=== PATIENT | male | born 1935 | race Caucasian/White ===

== ENCOUNTER 2016-07-31 11:42 | Inpatient (IN) | payer OTHER ==
[~2016-07-31] VITALS: Ht 175.3 cm; Wt 66.2 kg
--- NOTE | ~2016-07-31 | 2DMMODE ---
[facility] [place] [address] 2 D/M-MODE ECHOCARDIOGRAM Name: STEFANIE LING Room #: 303-P [facility]#: [id number] Admission: 07/31/16 Attend Phys: Luz Mathew MD Discharge: 08/01/16 Date of : 31 Date of Service: 08/01/16 1535 Report #: [id number] THIS REPORT FOR: //name// APPROVED REPORT Study performed: 08/01/2016 11:08:29 EXAM: Comprehensive 2D, Doppler, and color-flow Echocardiogram Patient Location: Bedside Blood Pressure: 105/65 mmHg HR: 69 bpm Other Information Study Quality: Adequate Indications Altered mental status, Dementia. 2D Dimensions LVEF(%): 59.83 (>50%) IVSd: 10.46 (7-11mm) LVOT Diam: 21.84 (18-24mm) LVDd: 46.48 mm PWd: 10.15 (7-11mm) Ascending Aorta: 33.81 mm LVDs: 31.71 (25-40mm) IVC: 25.00 mm Aortic Root: 36.75 mm Raphael's LVEF: 59.83 % Aortic Valve AoV Peak Jimmy.: 1.09 m/s AO Peak Gr.: 4.71 mmHg LV Max P.00 mmHg LV Max: 0.87 m/s Mitral Valve MV PHT: 44.78 ms MV E Max Jimmy.: 0.79 m/s E/A Ratio: 1.0 MV A Jimmy.: 0.78 m/s MV Decel. Time: 154.41 ms Pulmonary Valve PV Peak Jimmy.: 0.76 m/s PV Peak Gr.: 2.30 mmHg Tricuspid Valve RAP Estimate: 10.00 mmHg [facility] [address] [place] [address] 2 D/M-MODE ECHOCARDIOGRAM Name: CASESTEFANIE Room #: 303-P [facility] IN ..#: [id number] Admission: 07/31/16 Attend Phys: Luz Mathew MD Discharge: 08/01/16 Date of : 31 Date of Service: 08/01/16 1535 Report #: [id number] Left Ventricle The left ventricle is normal size. There is normal LV segmental wall motion. There is normal left ventricular wall thickness. The left ventricular systolic function is normal. The left ventricular ejection fraction is within the normal range. LVEF is 55-60%. Right Ventricle The right ventricle is normal size. The right ventricular systolic function is normal. Atria The left atrium size is normal. The right atrium size is normal. Aortic Valve The aortic valve is sclerotic. No aortic regurgitation is present. There is no aortic valvular stenosis. Mitral Valve The mitral valve is normal in structure. There is no mitral valve regurgitation noted. Tricuspid Valve The tricuspid valve is normal in structure. There is no tricuspid valve regurgitation noted. Pulmonic Valve The pulmonary valve is normal in structure. There is no pulmonic valvular regurgitation. Great Vessels The aortic root is normal in size. IVC is normal in size and collapses >50% with inspiration. Pericardium There is no pericardial effusion. <Conclusion> The left ventricle is normal size. The left ventricular systolic function is normal. The right ventricle is normal size. The left atrium size is normal. The aortic valve is sclerotic. There is no aortic valvular stenosis. [facility] [place] [address] 2 D/M-MODE ECHOCARDIOGRAM Name: CASE,STEFANIE Torres Room #: 303-P DIS IN M.R.#: [id number] Admission: 07/31/16 Attend Phys: Luz Mathew MD Discharge: 08/01/16 Date of : 31 Date of Service: 08/01/16 1535 Report #: [id number] The mitral valve is normal in structure. There is no pericardial effusion. <ELECTRONICALLY SIGNED> By: Jimenez Foote MD 08/01/16 1535 1535 153 Jimenez Foote MD /INF
--- NOTE | ~2016-07-31 | EKG ---
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 : 1935 Requested By: Camilo Tejeda Order Number: [id number] MD: Pramod Cueto Measurements Intervals [facility] Rate: 73 P: 47 [place]: 168 QRS: -64 QRSD: 135 T: 22 QT: 423 QTc: 467 Interpretive Statements Sinus rhythm RBBB and LAFB Compared to ECG 10/17/2015 21:43:33 ST (T wave) deviation now present No significant change was found Electronically Signed On 08-01-2016 7:55:12 CDT by Pramod Cueto [email or web address] <ELECTRONICALLY SIGNED> By: Pramod Cueto MD, [facility] 08/01/16 0755 1158 1158 Pramod Cueto MD, [facility] /EPI
[2016-07-31 11:42] VITALS: BP 117/60
[~2016-07-31 11:42] MED LIST: ACTOS 30 MG TAB30 M1 PO; ACTOS 30 MG TAB30 MG PO; ALLERCLEAR10 MG PO; ASPIR 8181 MG PO; ASPIRIN EC81 M1 PO; CALCIUM 500 +1 EAC5 PO; CALCIUM 600 +1 EA11 PO; CARAFATE 1 GM TA1 G1 PO; CLARITIN10 MG PO; CO Q-10100 MG PO; COQ-10100 MG PO; FLEXERIL PO; FOLIC ACID0.4 MG PO; GLUCOPHAGE500 MG PO; GLUCOSAMINE &1 EAC1 PO; GLUCOSAMINE &1 EACH PO; GLUMETZA500 PO; HYDROCODON-ACE1 EAC8 PO; JANUMET 50-5001 EACH PO; LEVEMIR SUBQ; LEVOTHYROXIN0.125 M1 PO; LEVOTHYROXIN0.137 M1 PO; MAGNESIUM GLUC250 MG PO; MAGNESIUM250 M1; MAGNESIUM250 M1 PO; MEGARED; MEGARED PLANT-300 MG PO; METAMUCIL1 EAC1 PO; METAMUCIL283 GM; NAMENDA 10 MG T10 MG PO; NAMENDA 5 MG TAB5 M1 PO; NORCO 5-325 TA1 EACH PO; OMEGA KRILL; OMEGA-3 KRILL1 EACH PO; PANTOPRAZOLE SO20 MG PO; POTASSIUM99 M1 PO; PREDNISONE 10 M10 M1 PO; PRILOSEC 20 MG20 MG PO; PROBIOTIC1 EAC1 PO; PROBIOTIC1 EACH PO; SIMVASTATIN40 MG PO; TRADJENTA5 MG PO; TRAMADOL 50 MG50 MG PO; ULTRAM 50MG TAB50 MG PO; VITAMIN E400 UNI2 PO; VITAMIN E400 UNIT PO; VITAMINC500 PO
[2016-07-31 12:03] LABS: HEMATOCRIT 42.7 % (42.0-52.0); HEMOGLOBIN 14.4 gm/dL (14.0-18.0); MCH 33.6 pg (26.0-34.0); MCHC 33.7 g/dL (28.0-37.0); MCV 99.7 fL (80.0-100.0); PLATELET COUNT 183 thou/uL (150-400); RBC 4.28 mil/uL (4.50-6.00); RDW 13.2 % (10.5-14.5); WBC 5.8 thou/uL (4.0-11.0)
[2016-07-31 12:07] LABS: MANUAL DIFF YES
[2016-07-31 12:12] LABS: ANION GAP 7 mmol/L (7-16); BUN 18 mg/dL (7-18); CALCIUM 9.1 mg/dL (8.5-10.1); CHLORIDE 107 mmol/L (98-107); CO2 24 mmol/L (21-32); CREATININE 0.9 mg/dL (0.7-1.3); GLUCOSE 139 mg/dL (74-106); POTASSIUM 4.5 mmol/L (3.5-5.1); SODIUM 138 mmol/L (136-145)
[2016-07-31 12:20] LABS: ALBUMIN 3.3 g/dL (3.4-5.0); ALKALINE PHOSPHATASE 73 U/L (46-116); PROTIME 10.6 Seconds (9.3-11.4); SGOT 23 U/L (15-37); SGPT 19 U/L (30-65); TOTAL BILIRUBIN 0.3 mg/dL (<0.1-1.0); TOTAL PROTEIN 6.5 g/dL (6.4-8.2); TROPONIN-I < 0.04 ng/mL (<0.04-0.07)
[2016-07-31 12:29] LABS: URINE BILIRUBIN NEGATIVE (Negative); URINE BLOOD TRACE (Negative); URINE COLOR YELLOW; URINE GLUCOSE-RANDOM* NEGATIVE (Negative); URINE KETONES NEGATIVE (Negative); URINE NITRITE NEGATIVE (Negative); URINE PROTEIN (DIPSTICK) NEGATIVE (Negative); URINE UROBILINOGEN 0.2 E.U./dl (0.2-1.0)
[2016-07-31 13:04] LABS: ABSOLUTE NEUTROPHILS 2.8 thou/uL (1.4-8.2); PLATELET ESTIMATE NORMAL; TOTAL CELL COUNT 100
[2016-07-31 16:42] LABS: TSH 0.863 uIU/mL (0.358-3.740)
[2016-07-31 16:49] VITALS: BP 126/78
[2016-07-31 20:00] VITALS: BP 114/76
[2016-08-01] VITALS: BP 104/59
[2016-08-01 04:00] VITALS: BP 95/55
[2016-08-01 05:58] LABS: CHOLESTEROL 109 mg/dL (<200); HDL CHOLESTEROL 28 mg/dL (>40); LDL CHOLESTEROL 67 mg/dL (<100); TC:HDL 3.9 Ratio (Not establshd); TRIGLYCERIDE 73 mg/dL (<150); VLDL 15 mg/dL (<40)
[2016-08-01 08:42] VITALS: BP 105/65
[2016-08-01 12:30] VITALS: BP 128/61
[2016-08-01 12:48] VITALS: BP 128/61
== END 2016-08-01 13:23 | disposition home or self-care (01) | DRG 149 ==
LOC: ER 11:42 → EROBS 14:49 → 3N 14:49
PROVIDERS: Family Medicine; Nurse Practitioner; Physician Assistant
DX: R42 Dizziness and giddiness (principal); E11.9 Type 2 diabetes mellitus without complications; E03.9 Hypothyroidism, unspecified; G30.9 Alzheimer's disease, unspecified; E78.5 Hyperlipidemia, unspecified; F02.80 Dementia in other diseases classified elsewhere, unspecified severity, without behavioral disturbance, psychotic disturbance, mood disturbance, and anxiety; R41.3 Other amnesia; Z96.651 Presence of right artificial knee joint; K21.9 Gastro-esophageal reflux disease without esophagitis; Z98.42 Cataract extraction status, left eye; Z98.41 Cataract extraction status, right eye; Z88.1 Allergy status to other antibiotic agents; Z88.2 Allergy status to sulfonamides; Z88.8 Allergy status to other drugs, medicaments and biological substances; Z87.891 Personal history of nicotine dependence; Z83.3 Family history of diabetes mellitus; Z79.82 Long term (current) use of aspirin; Z79.899 Other long term (current) drug therapy; Z90.49 Acquired absence of other specified parts of digestive tract
CPT/HCPCS: 10096

== ENCOUNTER 2016-09-19 04:21 | Emergency (ER) | payer OTHER ==
[~2016-09-19] VITALS: Ht 175.3 cm; Wt 79.4 kg
--- NOTE | ~2016-09-19 | EKG ---
[place] [address] [facility] [place] [address] ELECTROCARDIOGRAM REPORT Name: CASESTEFANIE Room #: 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
[~2016-09-19 04:21] MED LIST changes: +LEVOTHYROXIN0.112 M1 PO; +NOVOLOG100 UNIT/1 SUBQ; +TRADJENTA5 MG
[2016-09-19 04:43] LABS: HEMATOCRIT 39.1 % (42.0-52.0); HEMOGLOBIN 13.2 gm/dL (14.0-18.0); MCH 33.4 pg (26.0-34.0); MCHC 33.8 g/dL (28.0-37.0); PLATELET COUNT 183 thou/uL (150-400); RBC 3.95 mil/uL (4.50-6.00)
[2016-09-19 04:48] LABS: ANION GAP 8 mmol/L (7-16); BUN 23 mg/dL (7-18); CHLORIDE 104 mmol/L (98-107); CO2 26 mmol/L (21-32); CREATININE 1.1 mg/dL (0.7-1.3); GLUCOSE 181 mg/dL (74-106); POTASSIUM 3.9 mmol/L (3.5-5.1); SODIUM 138 mmol/L (136-145)
[2016-09-19 04:53] LABS: MANUAL DIFF YES
[2016-09-19 04:55] LABS: ALBUMIN 3.4 g/dL (3.4-5.0); ALKALINE PHOSPHATASE 77 U/L (46-116); SGOT 23 U/L (15-37); SGPT 22 U/L (30-65); TOTAL BILIRUBIN 0.2 mg/dL (<0.1-1.0); TOTAL PROTEIN 6.2 g/dL (6.4-8.2); TROPONIN-I < 0.04 ng/mL (<0.04-0.07)
[2016-09-19 05:16] LABS: ABSOLUTE NEUTROPHILS 1.8 thou/uL (1.4-8.2); TOTAL CELL COUNT 100
[2016-09-19 05:27] LABS: URINE BILIRUBIN NEGATIVE (Negative); URINE BLOOD TRACE (Negative); URINE COLOR YELLOW; URINE GLUCOSE-RANDOM* NEGATIVE (Negative); URINE KETONES NEGATIVE (Negative); URINE LEUKOCYTES-REFLEX NEGATIVE (Negative); URINE PROTEIN (DIPSTICK) NEGATIVE (Negative)
[2016-09-19] MEDS ORDERED: SIMETHICON CHEW80 M1 PO (06:01)
== END 2016-09-19 06:17 | disposition home or self-care (01) ==
LOC: ER 04:21
PROVIDERS: Emergency Medicine
DX: R10.9 Unspecified abdominal pain (principal); R14.0 Abdominal distension (gaseous); K21.9 Gastro-esophageal reflux disease without esophagitis; E78.00 Pure hypercholesterolemia, unspecified; G30.9 Alzheimer's disease, unspecified; E03.9 Hypothyroidism, unspecified; F02.80 Dementia in other diseases classified elsewhere, unspecified severity, without behavioral disturbance, psychotic disturbance, mood disturbance, and anxiety; Z90.89 Acquired absence of other organs; Z90.79 Acquired absence of other genital organ(s); Z85.46 Personal history of malignant neoplasm of prostate; Z88.8 Allergy status to other drugs, medicaments and biological substances; Z88.1 Allergy status to other antibiotic agents; Z87.891 Personal history of nicotine dependence

== ENCOUNTER → 2016-09-20 | Outpatient (CLI) | payer OTHER ==
[~2016-09-20] VITALS: Ht 172.7 cm; Wt 68.0 kg
[~2016-09-20] MED LIST changes: +SIMETHICON CHEW80 M1 PO
--- NOTE | ~2016-09-20 | P ---
[facility] [place] [address] [place] [address] PROCEDURE REPORT Name: STEFANIE LING Room #: REG [facility]#: [id number] Admission: 09/20/16 Attend Phys: Carlos Thompson MD Discharge: Date of : 31 Report #: [id number] THIS REPORT FOR: //name// CC: CARLOS Thompson DATE OF SERVICE: 09/20/2016 PROCEDURE PERFORMED: Upper endoscopy with biopsies and esophageal dilation. HISTORY OF PRESENT ILLNESS: The patient is an 81-year-old male with severe Alzheimer's disease, who was seen in the office on 08/29/2016. History was obtained through his , who was his caregiver. He has a long history of what they described as a yucky stomach and nausea, but no emesis. His weight has been stable. He also has had difficulty in swallowing. He takes Protonix on a daily basis, but also takes aspirin as well as other medications. The plan is for EGD. DESCRIPTION OF PROCEDURE: The risks and benefits of the procedure were explained to the patient's , those risks including but not limited to bleeding, perforation, the risk of sedation. He understood these risks and gave informed consent. Sedation was given using propofol per anesthesia. Next, using a standard Saperionn upper endoscope, the scope was placed in the patient's mouth and advanced under direct vision through the esophagus, stomach and into the second portion of the duodenum. The larynx was normal in appearance. The esophagus was normal throughout. The GE junction was normal. No evidence of stricture or narrowing. Overall, the gastric mucosa was normal other than some mild erythema consistent with a mild gastritis. Biopsies were obtained to rule out H. pylori. The pylorus was normal and patent. The duodenal bulb, first and second portion were all normal. The scope was then brought back up into the patient's stomach and a Savary guidewire was inserted through the scope, leaving the guidewire in place as the scope was then withdrawn. Next, a 48-Chinese Savary dilation of the esophagus was then performed without difficulty. The wire and dilator were removed. The scope was reintroduced into the patient's stomach. There was no evidence of mucosal tear after dilation. The scope was then withdrawn and the procedure terminated. The patient tolerated the procedure well. IMPRESSION: 1. Mild gastritis. 2. Otherwise, normal upper endoscopy. RECOMMENDATIONS: 1. Await biopsy results. 2. Continue PPI therapy. 3. Observe the patient post-dilation. [address] [address] PROCEDURE REPORT Name: CASESTEFANIE Room #: REG [facility] Pozo#: [id number] Admission: 09/20/16 Attend Phys: Carlos Thompson MD Discharge: Date of : 33 Report #: [id number] 4. If symptoms persist, may consider trial of antinausea medication, also consider a video swallow if dysphagia persists. Thank you for allowing me to participate in his care. By: 0930 2204 Zac Oreilly MD /abhi
== END | disposition home or self-care (01) ==
LOC: GI 08:06
DX: K29.70 Gastritis, unspecified, without bleeding (principal); G30.9 Alzheimer's disease, unspecified; F02.80 Dementia in other diseases classified elsewhere, unspecified severity, without behavioral disturbance, psychotic disturbance, mood disturbance, and anxiety; Z87.891 Personal history of nicotine dependence; E78.00 Pure hypercholesterolemia, unspecified; Z85.46 Personal history of malignant neoplasm of prostate; Z98.890 Other specified postprocedural states; K21.9 Gastro-esophageal reflux disease without esophagitis; E11.9 Type 2 diabetes mellitus without complications; E03.9 Hypothyroidism, unspecified; Z79.4 Long term (current) use of insulin

== ENCOUNTER → 2017-01-08 | Outpatient (CLI) | payer OTHER ==
[~2017-01-08] VITALS: Ht 175.3 cm; Wt 64.9 kg
[~2017-01-08] MED LIST changes: +VITAMIN D1000 UNI1 PO
--- NOTE | ~2017-01-08 | P ---
[facility] [place] [address] [place] [address] PROCEDURE REPORT Name: CASE,STEFANIE Torres Room #: REG [facility] Pozo#: [id number] Admission: 01/08/17 Attend Phys: Zac Velasquez Discharge: Date of : 31 Report #: [id number] THIS REPORT FOR: //name// CC: Quinton Oreilly DATE OF SERVICE: 01/08/2017 PROCEDURE PERFORMED: Upper endoscopy with biopsies. HISTORY OF PRESENT ILLNESS: The patient is an 81-year-old male with complaints of abdominal bloating. He underwent an upper endoscopy by myself several months ago for dysphagia. He has severe dementia, his states he has had no further difficulty with dysphagia, but continues to have abdominal bloating. They have tried probiotics in the past without much improvement. Plan is for EGD and colonoscopy today. DESCRIPTION OF PROCEDURE: The risks and benefits of the procedure were explained to the patient and his , those risks including but not limited to bleeding, perforation and the risk of sedation. He understood these risks and gave informed consent. Sedation was given using propofol per anesthesia. Next using a standard [facility] upper endoscope, the scope was placed in the patient's mouth and advanced under direct vision through the esophagus, stomach and into the second portion of the duodenum. The esophagus was normal throughout. The GE junction was normal. Overall, the gastric mucosa was normal. The pylorus was normal and patent. The duodenal bulb, first and second portion were all normal. Biopsies of the duodenum were obtained to rule out the possibility of celiac sprue. The scope was then withdrawn and the procedure terminated. The patient tolerated the procedure well. IMPRESSION: Normal upper endoscopy. RECOMMENDATIONS: 1. Await biopsy results. 2. We will proceed with colonoscopy next today. Thank you for allowing me to participate in his care. <ELECTRONICALLY SIGNED> By: Zac Oreilly MD 01/10/17 1151 1107 1244 Zac Oreilly MD /nt
--- NOTE | ~2017-01-08 | S ---
[facility] [place] [address] [place] [address] SURGICAL PATH RPT PROCEDURE Name: CASE,STEFANIE Torres Room #: REG [facility] Mc[facility]us.#: [id number] Admission: 01/08/17 Date of : 31 Discharge: Report #: [id number] Path Case #: [id number] PATHOLOGY REPORT COLLECTION DATE: 01/08/2017 RECEIVED DATE: 01/09/2017 SUBMITTING PHYS: Dr. Zac Oreilly OTHER PHYS: Dr. Quinton Thompson SPECIMEN(S) RECEIVED: A.Bx of duodenum B.Random colon biopsies * * * * * * * * * * * * FINAL DIAGNOSIS: A. Small bowel mucosa, duodenum, endoscopic biopsy: - Negative for sprue; negative for villous blunting or increase in intraepithelial lymphocytes. B. Large intestine mucosa, random colon, endoscopic biopsy: - Mid active colitis, see comment. - Negative for microscopic colitis. - Negative for dysplasia or malignancy. COMMENT: Sections of colon biopsy tissues show multiple foci of cryptitis and increase in cellularity of lamina propria with an increase in eosinophils within the infiltrate. There are no granulomata, viral inclusions or parasitic organisms. The collagen layer underneath the epithelium is not thickened. There is no distortion in crypt architecture or increase in fibrosis within the lamina propria. There is no increase in intraepithelial lymphocytes as well. There is no evidence of dysplasia or malignancy. Findings may be suggestive of an ongoing mild active colitis, diverticulits, medication induced colitis as well as reaction to bowel preparation. Please correlate clinically. PATHOLOGIST: Priya Patricia M.D. REPORT ELECTRONICALLY SIGNED BY: Priya Patricia M.D. DATE/TIME: 01/10/2017 13:01 * * * * * * * * * * * * GROSS PATHOLOGY: A. Received in formalin labeled "Stefanie Linder, BX of duodenum r/o sprue," are 4 segments of almanza soft tissue measuring 1.3 x 0.3 x 0.3 cm in aggregate dimensions and ranging from 0.3 to 0.4 cm in maximum dimension. The specimen is submitted entirely in cassette A1. [facility] [employer] [place] [address] SURGICAL PATH RPT PROCEDURE Name: SUSHIL,STEFANIE Torres Room #: REG [facility] M.R.#: [id number] Admission: 01/08/17 Date of : 31 Discharge: Report #: [id number] Path Case #: [id number] B. Received in formalin labeled "Stefanie Linder, random BX of colon r/o microscopic colitis," are 3 segments of almanza soft tissue measuring 1.0 x 0.3 x 0.2 cm in aggregate dimensions and ranging from 0.3 to 0.4 cm in maximum dimension. The specimen is submitted entirely in cassette B1. (TSD; 01/09/2017) CLINICAL HISTORY: Pre-OP DX: Abdominal bloating, change in bowel habits Post-OP DX: Diverticulosis INITIAL CPT CODE(S): A; 80824 B; 63262 Professional services performed by [facility] at [address] , [place] [address] Technical services performed by [facility] at [address] [place] [address], [address], [place] [address]. [facility] [address] [place] [address] PHONE: [phone] DIRECTOR: Leonard Bailey M.D. * * * END OF REPORT * * *
--- NOTE | ~2017-01-08 | P ---
[facility] [place] [address] PROCEDURE REPORT Name: CASE,STEFANIE Torres Room #: REG [facility] Sánchez#: [id number] Admission: 01/08/17 Attend Phys: Zac Velasquez Discharge: Date of : 31 Report #: [id number] THIS REPORT FOR: //name// CC: Quinton Oreilly DATE OF SERVICE: 01/08/2017 PROCEDURE PERFORMED: Colonoscopy with biopsies. HISTORY OF PRESENT ILLNESS: The patient is an 81-year-old male who complains of abdominal bloating. Upper endoscopy was just performed, which was normal. DESCRIPTION OF PROCEDURE: The risks and benefits of the procedure were explained to the patient and his , those risks including but not limited to bleeding, perforation, the risk of sedation. understood these risks and gave informed consent. Sedation was given using propofol per anesthesia. Next, a digital rectal exam was initially performed, which was normal. Next, using a standard Fujinon colonoscope, the scope was placed in the patient's anus and advanced under direct vision to the cecum. The overall prep was excellent. The cecum and ileocecal valve were normal in appearance. The ascending, transverse and descending colon were normal. A few scattered diverticula were noted in the sigmoid colon, otherwise normal. Random biopsies were obtained today to rule out the possibility of microscopic colitis. The rectal mucosa was normal. On retroflexion, no abnormalities were noted. The scope was then withdrawn and the procedure terminated. The patient tolerated the procedure well. IMPRESSION: 1. Sigmoid diverticulosis. 2. Otherwise, normal colonoscopy. RECOMMENDATIONS: 1. Await biopsy results. 2. Would recommend a scheduled dose of simethicone either b.i.d. or t.i.d. initially for the next few weeks to see if improvement. We also discussed possible charcoal tab has been helpful. Thank you for allowing me to participate in his care. <ELECTRONICALLY SIGNED> By: Zac Oreilly MD 01/10/17 1151 1109 1121 Zac Oreilly MD /nt
== END ==
LOC: GI 09:08
DX: R14.0 Abdominal distension (gaseous) (principal); K57.30 Diverticulosis of large intestine without perforation or abscess without bleeding; F03.90 Unspecified dementia, unspecified severity, without behavioral disturbance, psychotic disturbance, mood disturbance, and anxiety; R13.10 Dysphagia, unspecified; Z87.891 Personal history of nicotine dependence; G30.9 Alzheimer's disease, unspecified; E78.5 Hyperlipidemia, unspecified; K21.9 Gastro-esophageal reflux disease without esophagitis; E11.9 Type 2 diabetes mellitus without complications; E03.9 Hypothyroidism, unspecified; Z98.890 Other specified postprocedural states; Z85.46 Personal history of malignant neoplasm of prostate
CPT/HCPCS: 62110; 62900

== ENCOUNTER 2017-07-25 17:37 | Emergency (ER) | payer OTHER ==
[~2017-07-25] VITALS: Ht 175.3 cm; Wt 74.4 kg
[2017-07-25 18:38] LABS: HEMATOCRIT 37.9 % (42.0-52.0); HEMOGLOBIN 12.8 gm/dL (14.0-18.0); MCH 33.8 pg (26.0-34.0); MCHC 33.8 g/dL (28.0-37.0); PLATELET COUNT 197 thou/uL (150-400); RDW 13.6 % (10.5-14.5); WBC 5.2 thou/uL (4.0-11.0)
[2017-07-25 18:45] LABS: CALCIUM 9.3 mg/dL (8.5-10.1); POTASSIUM 4.4 mmol/L (3.5-5.1)
[2017-07-25 18:51] LABS: ALBUMIN 3.3 g/dL (3.4-5.0); TOTAL BILIRUBIN 0.3 mg/dL (<0.1-1.0); TOTAL PROTEIN 6.8 g/dL (6.4-8.2)
[2017-07-25 18:56] LABS: PROTIME 10.7 Seconds (9.3-11.4)
[2017-07-25 19:01] LABS: ANISOCYTOSIS 1+; POLYCHROMASIA OCCASIONAL
[2017-07-25] MEDS ORDERED: NAMZARIC 7 MG-1 EACH PO (19:04)
[2017-07-25] MEDS ORDERED: NAMZARIC 28 MG1 EACH PO (19:05)
== END 2017-07-25 19:53 | disposition home or self-care (01) ==
LOC: ER 17:37
PROVIDERS: Physician Assistant
DX: S16.1XXA Strain of muscle, fascia and tendon at neck level, initial encounter (principal); S00.83XA Contusion of other part of head, initial encounter; E11.9 Type 2 diabetes mellitus without complications; E03.9 Hypothyroidism, unspecified; K21.9 Gastro-esophageal reflux disease without esophagitis; E78.5 Hyperlipidemia, unspecified; G30.9 Alzheimer's disease, unspecified; F02.80 Dementia in other diseases classified elsewhere, unspecified severity, without behavioral disturbance, psychotic disturbance, mood disturbance, and anxiety; Z79.4 Long term (current) use of insulin; Z90.89 Acquired absence of other organs; Z88.8 Allergy status to other drugs, medicaments and biological substances; Z88.2 Allergy status to sulfonamides; Z87.891 Personal history of nicotine dependence; W18.39XA Other fall on same level, initial encounter; Y93.89 Activity, other specified; Y92.89 Other specified places as the place of occurrence of the external cause; Y99.8 Other external cause status

== ENCOUNTER → 2017-10-14 | Outpatient (CLI) | payer OTHER ==
[~2017-10-14] MED LIST changes: +NAMZARIC 28 MG1 EACH PO; +NAMZARIC 7 MG-1 EACH PO
--- NOTE | ~2017-10-14 | EKG ---
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
== END ==
LOC: RAD 15:21
DX: Z01.810 Encounter for preprocedural cardiovascular examination (principal); K40.90 Unilateral inguinal hernia, without obstruction or gangrene, not specified as recurrent

== ENCOUNTER → 2018-08-11 | Outpatient (CLI) | payer OTHER ==
--- NOTE | ~2018-08-11 | P ---
[facility] [place] [address] PROCEDURE REPORT Name: CASE,STEFANIE Torres Room #: [facility] ALFREDMarychuy Mcmanus.#: [id number] Admission: 08/11/18 ������������������ Attend Phys: Ozzy Iraheta MD Discharge: ������������������ Date of : 31 Report #: [id number] THIS REPORT FOR: //name// CC: Katelin Iraheta PREOPERATIVE DIAGNOSIS: Syncope. POSTOPERATIVE DIAGNOSIS: Syncope. DESCRIPTION OF PROCEDURE: The patient was brought to the procedure suite in a fasting and sedated state. He was prepped in a sterile fashion and then I injected lidocaine at the incision site. Incision was made, the [employer] Confirm implantable loop recorder was injected under the skin. A single layer of suture was placed at the incision site and surgical glue was placed to the outer skin layer. The device was working within normal limits. There were no procedure related complications. CONCLUSIONS: Successful implantable loop recorder insertion. ��������������������������������������������� ���������������������������������������� By: ��������������������������������������������� 1306 0439 Ozzy Iraheta MD /nt
[2018-08-11 11:32] VITALS: BP 119/66
== END | disposition home or self-care (01) ==
LOC: CATH 11:02
DX: R55 Syncope and collapse (principal); F03.90 Unspecified dementia, unspecified severity, without behavioral disturbance, psychotic disturbance, mood disturbance, and anxiety; Z88.2 Allergy status to sulfonamides; Z88.8 Allergy status to other drugs, medicaments and biological substances; Z79.82 Long term (current) use of aspirin; Z79.899 Other long term (current) drug therapy; Z79.4 Long term (current) use of insulin; Z98.890 Other specified postprocedural states